=== PATIENT | female | born 1990 | race Caucasian/White ===

== ENCOUNTER 2017-11-09 12:34 | Emergency (ER) | payer MEDICAID ==
[~2017-11-09] VITALS: Ht 157.5 cm; Wt 78.9 kg
[2017-11-09 13:02] VITALS: Ht 157.5 cm; Wt 78.9 kg
[2017-11-09 16:10] VITALS: BP 117/79
== END 2017-11-09 16:35 | disposition home or self-care (01) ==
LOC: ED 12:34
DX: K52.9 Noninfective gastroenteritis and colitis, unspecified (principal); Z88.0 Allergy status to penicillin
CPT/HCPCS: J1885; Q0162

== ENCOUNTER 2018-06-02 22:47 | Emergency (ER) | payer MEDICAID ==
[~2018-06-02] VITALS: Ht 157.5 cm; Wt 69.9 kg
[2018-06-02 22:58] VITALS: Ht 157.5 cm; Wt 69.9 kg
[2018-06-02 23:48] LABS: BASOPHIL % 0.8 % (0-2); PLATELET COUNT 245 x10^3mcL (130-400); RED CELL DISTRIBUTION WIDTH 13.1 % (11.5-14.5)
[2018-06-02 23:50] LABS: CALCIUM 9.1 mg/dL (8.5-10.1); CARBON DIOXIDE 23.9 mmol/L (21-32); CHLORIDE SERUM 105 mmol/L (98-107); CREATININE SERUM 0.8 mg/dL (0.6-1.0); GFR1 > 60 mL/min; GLUCOSE SERUM 102 mg/dL (74-106); POTASSIUM SERUM 3.3 mmol/L (3.5-5.1); SODIUM SERUM 137 mmol/L (136-145)
[2018-06-02 23:56] LABS: ALBUMIN 3.9 g/dL (3.4-5.0); ALKALINE PHOSPHATASE 89 U/L (46-116); ALT/SGPT 17 U/L (14-59); AMYLASE 42 U/L (25-115); AST/SGOT 17 U/L (15-37); BILIRUBIN TOTAL 0.8 mg/dL (0.20-1.00); LIPASE 140 IU/L (73-393); TOTAL PROTEIN, SERUM 7.9 g/dL (6.4-8.2)
[2018-06-03 03:35] VITALS: BP 109/80
== END 2018-06-03 03:35 | disposition home or self-care (01) ==
LOC: ED 22:47
PROVIDERS: Specialist
DX: R10.13 Epigastric pain (principal); R10.12 Left upper quadrant pain; R50.9 Fever, unspecified; Z88.0 Allergy status to penicillin
CPT/HCPCS: J1885; J3010; J3490; J7030; Q0092